=== PATIENT | male | born 1985 | race African-American/Black ===

== ENCOUNTER 2022-05-06 22:09 | Emergency (ER) | payer SELFPAY ==
[2022-05-06 22:12] VITALS: BP 141/94; PULSE 90; RESP 16; TEMP 36.5; O2SAT 98; BMI 34.3
--- NOTE | 2022-05-07 00:43 | ED.RN ---
Pt denies need for PD involvement.
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
--- NOTE | 2022-05-07 01:25 | RAD_ITS ---
EXAM: XR LEFT RIBS AND AP CHEST, 3 OR MORE VIEWS CLINICAL INDICATION: pain TECHNIQUE: Frontal and oblique views of the left ribs and frontal view of the chest. 5 images total. This report was created using [employer] technology. COMPARISON: None. FINDINGS: LUNGS AND PLEURAL SPACES: Unremarkable. No consolidation or edema. No pneumothorax. No effusion. HEART: Unremarkable. Cardiac silhouette not enlarged. Normal pulmonary vasculature. MEDIASTINUM: Central airways and mediastinal contour are unremarkable. BONES/JOINTS: Unremarkable. No evidence of acute rib fractures. RAD/Ribs Uni Min 3V w/PA Chest IMPRESSION: Negative chest and left ribs series. Electronically Signed: Ruben Packer MD at 1:47 EST ,
[2022-05-07] MEDS: oxyCODONE 5 MG Tablet 10 MG PO (01:41)
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
[2022-05-07] MEDS: Amox/Clavulanate 875 MG Tablet PO (03:31)
[2022-05-07] MEDS: Lidocaine 2% /Epi 1:100 (20ml) 20 ML VIAL INFILT (03:33)
[2022-05-07 06:04] VITALS: BP 136/89; PULSE 85; RESP 19; O2SAT 97
== END 2022-05-07 06:05 | disposition home or self-care (01) ==
PROVIDERS: Emergency Provider Emergency Medicine; Visit Provider Emergency Medicine
DX: S01.81XA Laceration without foreign body of other part of head, initial encounter (principal); S02.2XXA Fracture of nasal bones, initial encounter for closed fracture; F17.210 Nicotine dependence, cigarettes, uncomplicated; Y29.XXXA Contact with blunt object, undetermined intent, initial encounter
CPT/HCPCS: 70450; 70486; 71101; 99285